=== PATIENT | female | born 1960 | race Hispanic/Latino ===

== ENCOUNTER → 2021-02-28 | Outpatient (CLI) | payer OTHER | END | disposition home or self-care (01) | LOC: RAH 11:21 | PROVIDERS: ATTEND Otolaryngology Plastic Surgery within the Head & Neck | DX: R42 Dizziness and giddiness (principal); H90.3 Sensorineural hearing loss, bilateral; R55 Syncope and collapse | CPT/HCPCS: 93880 ==